=== PATIENT | male | born 1970 | race Caucasian/White ===

== ENCOUNTER 2021-01-07 09:08 | Outpatient (REF) | payer BC, SELFPAY ==
[2021-01-07 09:49] LABS: MANUAL DIFF FLAG NO
[2021-01-07 10:18] LABS: Glucose Urine UA NEG (NEG); Leukocyte Esterase Urine NEG (NEG); Nitrite Urine NEG (NEG); Specific Gravity - Urine 1.025 (1.005-1.025); Urine Blood NEG (NEG); Urine Ketones NEG (NEG); Urine Protein NEG (NEG-TRACE)
[2021-01-07 10:22] LABS: Appearance Urine CLEAR; Color Urine YELLOW
[2021-01-07 10:23] LABS: Basophils Absolute Auto 0.1 X10*3/uL (0.0-0.2); Basophils Percent Auto 0.8 % (0-2); Eosinophils Absolute Auto 0.2 X10*3/uL (0.0-0.4); Eosinophils Percent Auto 2.4 % (0-4); Hematocrit 44.2 % (42-52); Hemoglobin 14.1 g/dl (14.0-18.0); Imm Gran Abs Auto 0.04 X10*3/uL (0.00-0.03); Imm Gran Pct Auto 0.5 % (0.0-0.4); Lymphocytes Absolute Auto 1.5 X10*3/uL (1.2-4.9); Lymphocytes Percent Auto 20.3 % (20-40); Mean Corpuscular HGB Conc 31.9 g/dl (31.0-36.0); Mean Corpuscular Hemoglobin 28.3 pg (27.0-33.0); Mean Corpuscular Volume 88.6 fL (80-98); Mean Platelet Volume 9.5 fL (9.4-12.4); Monocytes Absolute Auto 0.7 X10*3/uL (0.1-1.2); Monocytes Percent Auto 8.6 % (2-11); Neutrophils Absolute Auto 5.1 X10*3/uL (2.0-8.3); Neutrophils Percent Auto 67.4 % (45-73); Platelet Count 373 X10*3/uL (160-400); Red Blood Count 4.99 X10*6/uL (4.60-5.80); Red Cell Distribution Width 12.6 % (11.0-16.0); White Blood Count 7.5 X10*3/uL (4.8-10.8)
[2021-01-07 10:35] LABS: Alanine Aminotransferase 17 U/L (0-40); Albumin Level 4.6 g/dL (3.5-5.0); Alkaline Phosphatase 112 U/L (39-117); Anion Gap 14 (12-20); Aspartate Amino Transferase 18 U/L (5-37); Bilirubin Total 0.7 mg/dL (0.0-1.0); Blood Urea Nitrogen 19 mg/dL (9-16); Calcium 9.8 mg/dL (8.4-10.2); Carbon Dioxide 28 mmol/L (22-29); Chloride 103 mmol/L (96-108); Cholesterol 191 mg/dL; Estimated Glomerular Filt Rate > 60; Glucose Fasting 101 mg/dL (60-99); HDL Cholesterol 49 mg/dL; LDL Cholesterol Calculated 115 mg/dl; Potassium 4.5 mmol/L (3.3-5.1); Sodium 140 mmol/L (135-145); Total Protein 8.2 g/dL (6.5-8.0); Triglycerides 139 mg/dL
[2021-01-07 10:58] LABS: Prostate Specific Antigen Scr 0.67 ng/mL (<0.05-4.0)
== END 2021-01-07 09:09 | disposition home or self-care (01) ==
LOC: HO.LAB 09:08
PROVIDERS: PCP Internal Medicine; Visit Provider Internal Medicine
DX: Z00.00 Encounter for general adult medical examination without abnormal findings (principal); Z12.5 Encounter for screening for malignant neoplasm of prostate
CPT/HCPCS: 36415; 80053; 80061; 81003; 84153; 85025

== ENCOUNTER 2021-08-04 06:24 | Day surgery (SDC) | payer BC, SELFPAY ==
[2021-07-28 14:51] VITALS: BMI 25.4
--- NOTE | 2021-08-03 10:17 | HO.ANESPROP2 ---
Documented by User: Petra Shine NP 08/03/21 10:17 HPI - Anesthesia Eval Consult details Narrative: 50yo M for Colonoscopy [facility] Past Medical History Medical History (Updated 07/28/21 @ 14:47 by Rebecca oCsby RN) No pertinent past medical history Surgical History Surgical History (Updated 07/28/21 @ 14:47 by Rebecca Cosby RN) No pertinent past surgical history Social History Social History Patient Tobacco Use Status: Never used Tobacco Advance Directives: No (unknown-VM message left) Advance Directives Information Provided: No Advance Directives on File: No Meds Allergies Allergy/AdvReac Type Severity Reaction Status Date / Time No Known Allergies Allergy Verified 07/28/21 14:46 Home Medications Medication Instructions Recorded Confirmed Last Taken Type ibuprofen 200 mg tablet 400 mg PO Q6H PRN 07/28/21 07/28/21 Unknown History Exam Exam Date and Time: August 03, 2021 1017 Height,Weight and Vital Signs: Height 6 ft 1 in Weight 87.543 kg Assessment and Plan Assessment Anesthesia Assessment: Chart Reviewed Documented by User: Cristóbal Montenegro MD 08/04/21 07:36 [facility] Past Medical History Medical History (Updated 07/28/21 @ 14:47 by Rebecca Cosby RN) No pertinent past medical history Family History Family history of problems with anesthesia: No Surgical History Surgical History (Updated 07/28/21 @ 14:47 by Rebecca Cosby RN) No pertinent past surgical history History of Problems with Anesthesia: No Social History Social History Patient Tobacco Use Status: Never used Tobacco Advance Directives: No (unknown-VM message left) Advance Directives Information Provided: No Advance Directives on File: No Meds Allergies Allergy/AdvReac Type Severity Reaction Status Date / Time No Known Allergies Allergy Verified 07/28/21 14:46 Home Medications Medication Instructions Recorded Confirmed Last Taken Type ibuprofen 200 mg tablet 400 mg PO Q6H PRN 07/28/21 07/28/21 Unknown History Exam Airway Mallampati Class: II TM Dist: >3cm Neck ROM: Full Loose/Missing/Broken Teeth: No Heart: rrr+[id number] Lungs: cta b/l Assessment and Plan Final Anesthetic Review Family History of Problems with Anesthesia: No History of Problems with Anesthesia: No NPO: Yes ASA Class: II Final Preanesthetic Review: No Changes in Pt Med Stat, Meds/Allgs Chart Reviewed, Consent Obtained/Reviewed and Anes Risks/Benef Reviewed Patient Risk: Low Procedure Risk: Low Assessment/Block/Sedation in SS: Assess/Block/Sedation-SS Anesthetic Plan Anesthetic Plan: MAC: and Agree w/ Assess. and Plan Disposition: Standard PACU
[2021-08-04 06:37] VITALS: BP 144/94; PULSE 95; RESP 16; TEMP 36.2; O2SAT 97
[2021-08-04] MEDS: Lactated Ringers 1,000 ML 100 ML IVCONT (06:52)
--- NOTE | 2021-08-04 07:24 | MHC.SHP ---
Pre-Procedural Eval Section A Date of Service: 08/04/21 Section B Chief Complaint: screening Details of Present Illness: see H&P no changes Relevant Family History (Specify if Yes): No Relevant Social History: None Present Medications: None Medical History: No relevant PMH History of Previous Operations: No relevant previous surgery Allergies: Allergies Allergy/AdvReac Type Severity Reaction Status Date / Time No Known Allergies Allergy Verified 07/28/21 14:46 Review of Systems Sugical H&P ROS: Negative: Constitution, Cardiovascular, Respiratory, Neurological, Psychiatric, Hem-Onc, Allergic/Immunologic, Gastrointestinal, Genitourinary, Musculoskeletal, Integumentary, Endocrine and Eyes/Ears/Nose/Throat Exam Surgical H&P Exam: Normal: HEENT, Normal: Heart, Normal: Lungs, Normal: Extremities, Normal: Abdomen, Normal: Skin and Normal: Neurological Plan Diagnosis/Plan: Unchanged I have reviewed the history and physical and performed a pertinent physical examination on my patient. No changes have occurred unless specified.
[2021-08-04 07:54] VITALS: BP 92/64; PULSE 95; RESP 16; TEMP 36.6; O2SAT 99
--- NOTE | 2021-08-04 08:02 | PM.OP ---
Brief Operative Note Date of Service: 08/04/21 Pre-op diagnosis: screening Post-op diagnosis: same Procedure: colonoscopy Surgeon: William Anguiano Anesthesia: MAC Was an Copy Center Specialist used for this Procedure?: No Estimated blood loss (mL): 0 Pathology: none sent Condition: stable Disposition: PACU
[2021-08-04 08:13] VITALS: BP 105/66; PULSE 84; RESP 16; TEMP 36.6; O2SAT 99
[2021-08-04 08:27] VITALS: BP 112/75; PULSE 79; RESP 16; TEMP 36.6; O2SAT 99
--- NOTE | 2021-08-04 09:41 | OP_ITS ---
SURGEON: William Anguiano MD INDICATIONS: Colon cancer screening. PREOPERATIVE DIAGNOSIS: POSTOPERATIVE DIAGNOSIS: PROCEDURE PERFORMED: Colonoscopy to the terminal ileum. ESTIMATED BLOOD LOSS: COMPLICATIONS: ANESTHESIA: ASSISTANTS: SPECIMENS: MEDICATIONS: Monitored anesthesia care. DESCRIPTION OF PROCEDURE: History and physical performed. The risks and benefits of the procedure were explained to the patient. Informed consent was obtained. The patient was placed in a left lateral decubitus position. A digital rectal exam was performed and was found to be normal. The Olympus pediatric video colonoscope was introduced into the rectum and advanced to the cecum without difficulty. The cecum was identified by transillumination, palpation, and identification of ileocecal valve. Examination was performed and the scope was removed. He tolerated the procedure well and was taken to recovery area in stable condition. FINDINGS: The terminal ileum was examined and appeared normal. The visualized colonic mucosa was normal. The quality of the prep was good. No polyps were identified. There was moderate diverticulosis of the sigmoid. Retroflexed examination showed internal hemorrhoids. The quality of the prep was good. IMPRESSION: Normal colonoscopy. RECOMMENDATIONS: 1. Follow up as needed. 2. Repeat colonoscopy is recommended in 10 years for average risk individuals. MD CHU Henderson/FREDI / [id number]
== END 2021-08-04 08:55 | disposition home or self-care (01) ==
PROVIDERS: PCP Internal Medicine; Visit Provider Internal Medicine Gastroenterology
PROC: 0DJD8ZZ Inspection of Lower Intestinal Tract, Via Natural or Artificial Opening Endoscopic (ICD-10-PCS; CPT 45378; principal; 2021-08-04 07:30)
DX: Z12.11 Encounter for screening for malignant neoplasm of colon (principal); K57.30 Diverticulosis of large intestine without perforation or abscess without bleeding; K64.8 Other hemorrhoids; Z79.1 Long term (current) use of non-steroidal anti-inflammatories (NSAID)
CPT/HCPCS: 45378

== ENCOUNTER 2023-07-26 09:43 | Outpatient (REF) | payer OTHER, SELFPAY ==
[2023-07-26 10:07] LABS: MANUAL DIFF FLAG NO
[2023-07-26 10:20] LABS: Basophils Absolute Auto 0.1 X10*3/uL (0.0-0.2); Basophils Percent Auto 0.7 % (0-2); Eosinophils Absolute Auto 0.1 X10*3/uL (0.0-0.4); Eosinophils Percent Auto 1.6 % (0-4); Hematocrit 42.9 % (42.0-52.0); Hemoglobin 13.8 g/dl (14.0-18.0); Imm Gran Abs Auto 0.04 X10*3/uL (0.00-0.03); Imm Gran Pct Auto 0.5 % (0.0-0.4); Lymphocytes Absolute Auto 0.9 X10*3/uL (1.2-4.9); Lymphocytes Percent Auto 11.5 % (20-40); Mean Corpuscular HGB Conc 32.2 g/dl (31.0-36.0); Mean Corpuscular Hemoglobin 28.2 pg (27.0-33.0); Mean Corpuscular Volume 87.6 fL (80.0-98.0); Mean Platelet Volume 9.1 fL (9.4-12.4); Monocytes Absolute Auto 0.8 X10*3/uL (0.1-1.2); Monocytes Percent Auto 10.7 % (2-11); Neutrophils Absolute Auto 5.7 x10*3/uL (2.0-8.3); Platelet Count 333 X10*3/uL (160-400); Red Cell Distribution Width 12.8 % (11.0-16.0); White Blood Count 7.6 X10*3/uL (4.8-10.8)
[2023-07-26 10:50] LABS: Alanine Aminotransferase 14 U/L (0-40); Albumin Level 4.4 g/dL (3.5-5.0); Alkaline Phosphatase 111 U/L (39-117); Anion Gap 14 (12-20); Aspartate Amino Transferase 17 U/L (5-37); Bilirubin Total 0.5 mg/dL (0.0-1.0); Blood Urea Nitrogen 17 mg/dL (9-16); Calcium 10.3 mg/dL (8.4-10.2); Carbon Dioxide 26 mmol/L (22-29); Chloride 103 mmol/L (96-108); Cholesterol 175 mg/dL (<200); Estimated Glomerular Filt Rate > 60; Glucose Fasting 104 mg/dL (60-99); HDL Cholesterol 50 mg/dL (>40); LDL Cholesterol Calculated 107 mg/dL (<100); Potassium 4.4 mmol/L (3.3-5.1); Sodium 139 mmol/L (135-145); Total Protein 8.4 g/dL (6.5-8.0); Triglycerides 93 mg/dL (<150)
[2023-07-26 11:13] LABS: Prostate Specific Antigen Scr 0.62 ng/mL (<0.05-4.0)
== END 2023-07-26 09:44 | disposition home or self-care (01) ==
LOC: HO.LAB 09:43
PROVIDERS: PCP Internal Medicine; Visit Provider Internal Medicine
DX: Z00.00 Encounter for general adult medical examination without abnormal findings (principal); Z12.5 Encounter for screening for malignant neoplasm of prostate
CPT/HCPCS: 36415; 80053; 80061; 84153; 85025

== ENCOUNTER 2024-08-29 10:21 | Outpatient (REF) | payer OTHER, SELFPAY ==
[2024-08-29 10:44] LABS: MANUAL DIFF FLAG NO
[2024-08-29 10:59] LABS: Basophils Absolute Auto 0.1 X10*3/uL (0.0-0.2); Basophils Percent Auto 0.7 % (0-2); Eosinophils Absolute Auto 0.2 X10*3/uL (0.0-0.4); Eosinophils Percent Auto 2.8 % (0-4); Hematocrit 42.7 % (42.0-52.0); Hemoglobin 14.2 g/dl (14.0-18.0); Imm Gran Abs Auto 0.03 X10*3/uL (0.00-0.03); Imm Gran Pct Auto 0.4 % (0.0-0.4); Lymphocytes Absolute Auto 1.5 X10*3/uL (1.2-4.9); Lymphocytes Percent Auto 21.5 % (20-40); Mean Corpuscular HGB Conc 33.3 g/dl (31.0-36.0); Mean Corpuscular Hemoglobin 28.8 pg (27.0-33.0); Mean Corpuscular Volume 86.6 fL (80.0-98.0); Mean Platelet Volume 8.9 fL (9.4-12.4); Monocytes Absolute Auto 0.7 X10*3/uL (0.1-1.2); Monocytes Percent Auto 9.2 % (2-11); Neutrophils Absolute Auto 4.7 x10*3/uL (2.0-8.3); Neutrophils Percent Auto 65.4 % (45-73); Platelet Count 322 X10*3/uL (160-400); Red Blood Count 4.93 X10*6/uL (4.60-5.80); Red Cell Distribution Width 12.6 % (11.0-16.0); White Blood Count 7.2 X10*3/uL (4.8-10.8)
[2024-08-29 11:09] LABS: Estimated Average Glucose 111 mg/dL; Hemoglobin A1C 127.9395 umol/L; Hemoglobin A1c % 5.5 % (<6.0); Total Hemoglobin (HGBA1C) 3521.1794 umol/L
[2024-08-29 11:24] LABS: Alanine Aminotransferase 31 U/L (0-40); Albumin Level 4.4 g/dL (3.5-5.0); Alkaline Phosphatase 98 U/L (39-117); Anion Gap 13 (12-20); Aspartate Amino Transferase 25 U/L (5-37); Bilirubin Total 0.6 mg/dL (0.0-1.0); Blood Urea Nitrogen 16 mg/dL (9-16); Calcium 10.7 mg/dL (8.4-10.2); Carbon Dioxide 27 mmol/L (22-29); Chloride 104 mmol/L (96-108); Cholesterol 202 mg/dL (<200); Estimated Glomerular Filt Rate > 60; Glucose Random 106 mg/dL (60-115); Potassium 4.4 mmol/L (3.3-5.1); Sodium 140 mmol/L (135-145); Total Protein 8.2 g/dL (6.5-8.0)
[2024-08-29 11:46] LABS: Prostate Specific Antigen 0.57 ng/mL (<0.05-4.0)
== END 2024-08-29 10:22 | disposition home or self-care (01) ==
LOC: HO.LAB 10:21
PROVIDERS: PCP Internal Medicine; Visit Provider Internal Medicine
DX: K40.90 Unilateral inguinal hernia, without obstruction or gangrene, not specified as recurrent (principal); Z80.42 Family history of malignant neoplasm of prostate; Z12.5 Encounter for screening for malignant neoplasm of prostate; E11.9 Type 2 diabetes mellitus without complications
CPT/HCPCS: 36415; 80053; 82465; 83036; 84153; 85025

== ENCOUNTER 2025-08-16 09:36 | Outpatient (AMB) | payer OTHER, SELFPAY ==
--- NOTE | 2025-08-16 09:40 | A.OFFPC_ITS ---
Vital Signs 08/16/25 09:41 Height 5 ft 11 in Weight 192 lb 6 oz BMI 26.8 BP 112/74 Blood Pressure Location Lt brachial Position Sitting Respiration 16 Pulse 76 Pulse Source Pulse Oximeter Temp 98.6 F Temp Source Temporal Artery Scan Pulse Oximetry (%) 97 Oxygen Delivery Method Room Air Intake Visit Reasons: Physical-Croke pt Tiler Required: No Accompanied by: Self / Same As Patient Allergies No Known Allergies Allergy (Verified 08/16/25 09:40) Tobacco use date assessed: 08/16/25 Dental Screening Dental Screen Date: 08/16/25 Did you have a dental visit in the last 12 months?: Yes Did you have a dental problem in the last 6 months where you did not have access to dental care?: No Was dental information given to patient?: Patient has dentist HPI HPI Comments History of Present Illness Details The patient is a 54-year-old male presenting for a routine wellness visit. Upon review of his recent medical history, it was noted that his cholesterol levels from the last year's blood work were slightly elevated with total cholesterol at 202 mg/dL and LDL cholesterol at 107 mg/dL. These values were discussed, and it was highlighted that while they are not critically high, there is a preference to maintain levels within a controlled range to minimize cardiovascular risk, especially considering the patient's age and male gender, which are predisposing factors for heart disease. The patient reported no symptoms associated with hyperlipidemia, such as any chest pain or shortness of breath, and confirmed he is in good health otherwise. This visit aims to monitor his health metrics and address any preventive care, especially given the family history of prostate cancer. Medical History: - Elevated Cholesterol Surgical History: - None reported Medications: - None mentioned Family History: - Father had prostate cancer in his 70s - Father has prediabetes Diagnostic Results: - Labs: Cholesterol last year - Total Ch olesterol 202 mg/dL, LDL Cholesterol 107 mg/dL - Tests: Recent colonoscopy, no issues, next due 2030 Social History: - Employment: customer sales consultant - Alcohol use: Social drinking, approxim ately once a month - Substance use: Occasional use of gummi es; no smoking, cocaine, or heroin usage - Exercise: Regular physical activity an d weight management, mentioned weight reduction to 215 pounds - Family: ; mother's history as a nurse - Technology usage: Signed up for health portal access [facility] Medical History (Updated 08/16/25 @ 10:00 by Luiz Aguayo MD) Family history of prostate cancer Hyperlipidemia No pertinent past medical history Surgical History (Updated 08/06/25 @ 15:07 by Nikia Stapleton) History of colonoscopy (~08/04/21) Social History Housing: House Patient Tobacco Use Status: Never used Tobacco e-Cigarette/Vaping Use: Never Used service: No Current occupational status: employed Current occupation: customer sales consultant Questionnaire PHQ-9 Over the last 2 weeks, how often have you been bothered by any of the following problems? 1. Little interest or pleasure in doing things: not at all 2. Feeling down, depressed, or hopeless: not at all 3. Trouble falling or staying asleep, or sleeping too much: not at all 4. Feeling tired or having little energy: not at all 5. Poor appetite or overeating: not at all 6. Feeling bad about yourself - or that you are a failure or have let yourself or your family down: not at all 7. Trouble concentrating on things, such as reading the newspaper or watching television: not at all 8. Moving or speaking so slowly that other people could have noticed. Or the opposite - being so fidgety or restless that you have been moving around a lot more than usual: not at all 9. Thoughts that you would be better off or of hurting yourself in some way: not at all Total score: 0 Depression Screening Interpretation: Negative Depression Screening Done: Yes 58573 - PHQ-9 Billing: Yes Source: Developed by Drs. Jeremiah Davis, Beatriz Zafar, Tucker Almonte and colleagues, with an educational lelo from [employer]. AUDIT C Alcohol Use Questionnaire (AUDIT-C) 1. How often do you have a drink containing alcohol?: Monthly or less 2. How many drinks containing alcohol do you have on a typical day when you are drinking?: 1 or 2 3. How often do you have six or more drinks on one occasion?: Never Total Score: 1 LEIDY-7 AMB Questionnaire LEIDY-7 Date LEIDY - 7 assessed: 08/16/25 Feeling nervous, anxious, or on edge: 0 = Not at all Not being able to stop or control worryin = Not at all Worrying too much about different things: 0 = Not at all Trouble relaxin = Not at all Being so restless that it is hard to sit still: 0 = Not at all Becoming easily annoyed or irritable: 0 = Not at all Feeling afraid as if something awful might happen: 0 = Not at all Total LEIDY-7 score (0-4 normal; 5-9 mild; 10-14 moderate; 15-21 severe): 0 Source: Developed by Drs. Jeremiah Davis, Beatriz Zafar, Tucker Almonte and colleagues, with an educational lelo from [employer]. LEIDY-7 Assessment Billing LEIDY-7 Assessment Tool: LEIDY-7 Assessment 92733 Review of Systems Const Details: - Constitutional: Denies weight loss - Cardiovascular: Denies chest pain - Respiratory: Denies shortness of breath - Gastrointestinal: Reports no nausea or vomiting, bowel movements normal - Neurological: Denies headaches - Genitourinary: Denies urinary urgency or frequency All systems reviewed & are unremarkable except as reviewed in HPI and above Physical exam (Primary Care) Vital Signs: Last Vital Signs Temp 98.6 F 08/16/25 09:41 Pulse 76 08/16/25 09:41 Resp 16 08/16/25 09:41 BP 112/74 08/16/25 09:41 Pulse Ox 97 08/16/25 09:41 Oxygen Delivery Method Room Air 08/16/25 09:41 BMI result Body Mass Index 26.8 Tobacco/Smoking Status: Tobacco use Status Tobacco use date assessed 08/16/25 08/16/25 09:46 Patient Tobacco Use Status Never used Tobacco 08/16/25 09:46 e-Cigarette/Vaping Use Never Used 08/16/25 09:46 Depression Screening Interpretation: Negative Const Other: General: Alert and oriented, Well nourished, No acute distress. Eye: Pupils are equal, round and reactive to light, Intact accommodation, Extraocular movements are intact, Normal conjunctiva, Vision unchanged. HENT: Normocephalic, Atraumatic, Tympanic membranes are clear, Normal hearing, Oral mucosa is moist, No pharyngeal erythema, Ear canals patent. Respiratory: Lungs CTA bilaterally, No wheeze, Respirations are non-labored. Cardiovascular: Regular rate, Regular rhythm, S1 auscultated, S2 auscultated, No murmur, Good pulses equal in all extremities, Normal peripheral perfusion, No edema. Gastrointestinal: Soft, Non-tender, Non-distended, Normal bowel sounds, No organomegaly. Musculoskeletal: Normal range of motion, Normal strength, No tenderness, No swelling, No deformity, Normal gait. Integumentary: Warm, Dry, Hugo, Intact. Neurologic: Alert, Oriented, Normal sensory, Normal motor function, No focal defects, Cranial Nerves II-XII are grossly intact, Normal deep tendon reflexes. Psychiatric: Cooperative, Appropriate mood & affect, Normal judgment. Coding Level of Care Code New Pt Level 3 (44543) Diagnoses Other hyperlipidemia E78.49 Hyperlipidemia type: other hyperlipidemia Family history of prostate cancer Z80.42 Additional Codes PHQ-9 - 00134 - PHQ-9 Billing: Yes ([id number]) LEIDY-7 Assessment Billing - LEIDY-7 Assessment Tool: LEIDY-7 Assessment 35933 ([id number]) Assessment & Plan Assessment & Plan (1) Hyperlipidemia: Comment: - Discussed the patient's cholesterol levels, which are slightly elevated with a total cholesterol of 202 mg/dL and an LDL of 107 mg/dL. - Explained the benefits of medications such as statins for reducing cardiovascular risk. - Ordered comprehensive blood work including cholesterol to evaluate current levels. If elevated will consider statins - Encouraged maintaining a healthy diet and active lifestyle to manage cholesterol levels naturally. Code(s): E78.5 - Hyperlipidemia, unspecified Category: Medical Qualifiers: Hyperlipidemia type: other hyperlipidemia Qualified Code(s): E78.49 - Other hyperlipidemia (2) Family history of prostate cancer: Comment: - Discussed the family history of prostate cancer in the patient's father. - Recommended continued observation and routine lab work to monitor prostate levels for early detection given family history. - Patient reassured about ongoing monitoring even though prostate issues were not currently present. Code(s): Z80.42 - Family history of malignant neoplasm of prostate Category: Medical Plan: Healthcare Maintenance: - Colonoscopy: Up to date, next due 2030 - Registered patient for portal access for health record updates and communication - Discussed the importance of a low-salt diet, regular exercise, and moderation in alcohol consumption to maintain overall health Patient was informed and verbally consented to the use of an ambient scribe for clinic note documentation during this visit. Plan During the session, I addressed the patient's slightly elevated cholesterol levels?emphasizing the potential benefits of pharmacological intervention such as statins to mitigate the risk of cardiovascular disease given his age and family history. We discussed the family history of prostate cancer and the potential need for regular blood work to check prostate-specific antigen (PSA) levels for surveillance purposes. I explained the availability of a patient portal, enabling efficient communication and access to health records directly, streamlining future interactions and follow-ups without the need for physical v isits or phone calls unless necessary. The patient was advised on dietary modifications and maintaining an active lifestyle. The discussion ensured the patient was aware of preventive measures to control cholesterol within healthy limits and reduce potential risks related to his family history. Orders: Orders Hepatitis A,B,C Profile Today Z76.89 - Persons encountering health services in other specified circumstances Vitamin D 25-OH Total Today Z76.89 - Persons encountering health services in other specified circumstances Complete Blood Count Auto Diff Today Z76.89 - Persons encountering health services in other specified circumstances Comprehensive Met. Panel Today Z76.89 - Persons encountering health services in other specified circumstances Hemoglobin A1c Today Z76.89 - Persons encountering health services in other specified circumstances HIV Ab/Ag Today Z76.89 - Persons encountering health services in other specified circumstances Lipid Panel Today Z76.89 - Persons encountering health services in other specified circumstances Syphilis Screen Today Z76.89 - Persons encountering health services in other specified circumstances TSH reflex Free T4 Today Z76.89 - Persons encountering health services in other specified circumstances PSA,Total (Free>4and<10) Today Z76.89 - Persons encountering health services in other specified circumstances Patient Instructions: - Continue regular exercise and maintain a healthy diet with low salt. - Limit alcohol intake to moderation. - Monitor health through the patient portal and communicate as needed. - Follow up with blood tests for cholesterol levels as advised. - Stay updated on recommended health screenings and initiatives.
[2025-08-16 09:41] VITALS: BP 112/74; PULSE 76; RESP 16; TEMP 37; O2SAT 97; BMI 26.8
== END 2025-08-16 10:01 | disposition home or self-care (01) ==
PROVIDERS: PCP Student in an Organized Health Care Education/Training Program; Visit Provider Student in an Organized Health Care Education/Training Program
DX: E78.49 Other hyperlipidemia (principal); Z80.42 Family history of malignant neoplasm of prostate

== ENCOUNTER 2025-08-16 09:57 | Outpatient (REF) | payer OTHER, SELFPAY ==
[2025-08-16 12:01] LABS: MANUAL DIFF FLAG NO
[2025-08-16 12:09] LABS: Hematocrit 44.5 % (42.0-52.0); Hemoglobin 14.4 g/dl (14.0-18.0); Imm Gran Abs Auto 0.05 X10*3/uL (0.00-0.03); Imm Gran Pct Auto 0.6 % (0.0-0.4); Lymphocytes Absolute Auto 1.5 X10*3/uL (1.2-4.9); Mean Corpuscular HGB Conc 32.4 g/dl (31.0-36.0); Mean Corpuscular Hemoglobin 29.0 pg (27.0-33.0); Mean Corpuscular Volume 89.5 fL (80.0-98.0); NRBC Abs Auto 0.000 X10*3/uL (0.0-0.012); NRBC Pct Auto 0.0 /100WBC (0.0-0.2); Platelet Count 355 X10*3/uL (160-400); Red Blood Count 4.97 X10*6/uL (4.60-5.80); White Blood Count 7.8 X10*3/uL (4.8-10.8)
[2025-08-16 12:34] LABS: Alanine Aminotransferase 19 U/L (0-40); Albumin Level 4.7 g/dL (3.5-5.0); Alkaline Phosphatase 88 U/L (39-117); Anion Gap 13 (12-20); Aspartate Amino Transferase 25 U/L (5-37); Blood Urea Nitrogen 12 mg/dL (9-16); Calcium 9.8 mg/dL (8.4-10.2); Carbon Dioxide 28 mmol/L (22-29); Chloride 103 mmol/L (96-108); Cholesterol 216 mg/dL (<200); Estimated Glomerular Filt Rate > 60; HDL Cholesterol 59 mg/dL (>40); Potassium 4.1 mmol/L (3.3-5.1); Sodium 140 mmol/L (135-145); Total Protein 7.8 g/dL (6.5-8.0); Triglycerides 114 mg/dL (<150)
[2025-08-16 12:37] LABS: PSA,Total (Free>4and<10) 0.83 ng/mL (0.00-4.00)
[2025-08-16 12:40] LABS: HBS Num1 32.70 mIU/mL (0-7.99); HBc Num1 0.08 S/CO (0.00-0.79); HBsAGNum1 0.40 S/CO (0.00-0.99); HIV Num 1 0.07 S/CO (0.00-0.99); Hepatitis A Antibody IgM 0.24 Index (0-0.79); Hepatitis B Surface Antigen Negative (Negative); Syphilis Screen Nonreactive (Nonreactive); ~HepC Num1 0.09 S/CO (0.00-0.79); ~Hepatitis A Antibody IgM Nonreactive (Nonreactive); ~Hepatitis B Surface Antibody REACTIVE (Nonreactive); ~Hepatitis C Antibody Nonreactive (Nonreactive)
[2025-08-16 14:28] LABS: Hemoglobin A1C 144.5651 umol/L; Total Hemoglobin (HGBA1C) 3772.3568 umol/L
== END 2025-08-16 09:58 | disposition home or self-care (01) ==
LOC: HO.10HDL 09:57
PROVIDERS: Visit Provider Student in an Organized Health Care Education/Training Program
DX: Z00.00 Encounter for general adult medical examination without abnormal findings (principal); Z12.5 Encounter for screening for malignant neoplasm of prostate; Z13.1 Encounter for screening for diabetes mellitus; Z76.89 Persons encountering health services in other specified circumstances; E78.49 Other hyperlipidemia; E78.5 Hyperlipidemia, unspecified; Z80.42 Family history of malignant neoplasm of prostate
CPT/HCPCS: 36415; 80053; 80061; 82306; 83036; 84153; 84443; 85025; 86704; 86706; 86709; 86780; 86803; 87340; 87389; 96127